=== PATIENT | female | born 2000 | race Caucasian/White ===

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

== ENCOUNTER → 2020-03-23 | Outpatient (CLI) | payer OTHER, SELFPAY ==
[2020-03-23 15:06] LABS: Potassium 4.2 mmol/L (3.5-5.1)
== END | disposition home or self-care (01) ==
PROVIDERS: Referring Provider Dermatology; Visit Provider Dermatology
DX: Z79.899 Other long term (current) drug therapy (principal); L70.0 Acne vulgaris
CPT/HCPCS: 36415; 84132

== ENCOUNTER 2021-01-17 08:26 | Outpatient (RCR) | payer OTHER, SELFPAY | END 2021-03-12 23:59 | LOC: IMMUN 08:26 | PROVIDERS: PCP Family Medicine; Referring Provider Family Medicine; Visit Provider Family Medicine | DX: Z23 Encounter for immunization (principal) | CPT/HCPCS: 0001A; 0002A; 91300 ==

== ENCOUNTER → 2021-03-21 12:14 | Outpatient (CLI) | payer OTHER, SELFPAY ==
[2021-03-21 15:06] LABS: Potassium 5.2 mmol/L (3.5-5.1)
== END ==
PROVIDERS: PCP Family Medicine; Referring Provider Dermatology; Visit Provider Dermatology
DX: L70.0 Acne vulgaris (principal); Z79.899 Other long term (current) drug therapy
CPT/HCPCS: 36415; 84132

== ENCOUNTER → 2021-03-25 13:12 | Outpatient (CLI) | payer OTHER, SELFPAY ==
[2021-03-25 15:16] LABS: Potassium 4.3 mmol/L (3.5-5.1)
== END ==
PROVIDERS: PCP Family Medicine; Referring Provider Dermatology; Visit Provider Dermatology
DX: Z79.899 Other long term (current) drug therapy (principal)
CPT/HCPCS: 36415; 84132

== ENCOUNTER → 2021-10-03 15:18 | Outpatient (CLI) | payer OTHER, SELFPAY | PROVIDERS: PCP Family Medicine; Visit Provider Physician Assistant Medical | DX: Z11.52 Encounter for screening for COVID-19 (principal) | CPT/HCPCS: 87635; U0003; U0005 ==

== ENCOUNTER → 2022-04-09 | Outpatient (CLI) | payer OTHER, SELFPAY ==
[2022-04-09 15:21] LABS: Potassium 4.2 mmol/L (3.5-5.1)
== END | disposition home or self-care (01) ==
PROVIDERS: PCP Family Medicine; Referring Provider Dermatology; Visit Provider Dermatology
DX: L70.0 Acne vulgaris (principal); Z79.899 Other long term (current) drug therapy
CPT/HCPCS: 36415; 84132

== ENCOUNTER → 2023-03-18 | Outpatient (CLI) | payer OTHER, SELFPAY ==
[2023-03-18 18:17] LABS: Absolute Lymphocyte Count 1.56 X10^3/uL (0.83-4.51); Absolute Neutrophil Count 4.7 X10^3/uL (2.0-7.7); Basophil# 0.04 X10^3/uL; Basophil% 0.6 % (0-1); Eosinophil# 0.08 X10^3/uL; Eosinophils% 1.2 % (0-5); Hematocrit 41.5 % (37-47); Hemoglobin 13.8 g/dL (12.0-15.0); Lymphocyte # 1.56 X10^3/ul (0.83-4.51); Lymphocyte % 22.9 % (19-41); Mean Corp Hgb Conc 33.3 g/dL (32-36); Mean Corpuscular Hgb 28.8 pg (27.0-32.0); Mean Corpuscular Volume 86.5 fL (81-99); Mean Platelet Vol. 10.2 fl (6.2-12.0); Monocyte# 0.44 X10^3/uL; Monocyte% 6.5 % (0-10); NRBC Flagged by Analyzer 0 % (0-5); Neutrophil # 4.69 X10^3/uL (2.7-7.7); Neutrophil % 68.7 % (47-70); Platelet Count 346 K/mm3 (150-450); RBC Distribution Width CV 11.6 % (11.6-14.6); RBC Distribution Width SD 37.1 fl (35.1-43.9); White Blood Count 6.8 K/mm3 (4.4-11.0)
[2023-03-18 19:03] LABS: T4 Free Direct 0.99 ng/dL (0.76-1.46); Thyroid Stim Hormone (TSH) 3.29 uIU/mL (0.358-3.74)
[2023-03-23 17:21] LABS: HPV Reflexed? NOT INDICATED
== END | disposition home or self-care (01) ==
PROVIDERS: PCP Family Medicine; Referring Provider Registered Nurse; Visit Provider Registered Nurse
DX: Z12.4 Encounter for screening for malignant neoplasm of cervix (principal); N92.1 Excessive and frequent menstruation with irregular cycle
CPT/HCPCS: 36415; 84439; 84443; 85025; 88175; G0145

== ENCOUNTER → 2023-03-24 | Outpatient (CLI) | payer OTHER, SELFPAY ==
--- NOTE | 2023-03-24 13:48 | US_ITS ---
EXAM: US PELVIS TRANSVAGINAL CLINICAL INDICATION: irregular meses TECHNIQUE: Transvaginal pelvic ultrasound was performed with grayscale and color Doppler imaging. Transvaginal imaging was used for better evaluation of the endometrium and adnexa. COMPARISON: No relevant prior studies available. FINDINGS: UTERUS/CERVIX: Uterus measures 7.2 x 3.6 x 4.7 cm. The endometrium measures 4 mm. Anteverted. There is no uterine mass. RIGHT OVARY: The right ovary measures 2.3 x 1.2 x 1.9 cm. Blood flow is present in the right ovary. LEFT OVARY: The left ovary measures 4.5 x 3 x 4.3 cm. There is a large 3.7 x 2.5 x 3.7 cm anechoic structure in the left ovary compatible with a large cyst. Blood flow is present in the left ovary. FREE FLUID: None. BLADDER: Empty bladder which cannot be evaluated with this probe. US/Transvaginal Non- IMPRESSION: Large left ovarian cyst. No other abnormalities are identified. Electronically Signed: Martin Kirkland MD at 0:01 EDT ,
== END | disposition home or self-care (01) ==
LOC: US 13:48
PROVIDERS: PCP Family Medicine; Referring Provider Registered Nurse; Visit Provider Registered Nurse
DX: N92.1 Excessive and frequent menstruation with irregular cycle (principal)
CPT/HCPCS: 76830

== ENCOUNTER → 2023-04-08 | Outpatient (CLI) | payer OTHER, SELFPAY | END | disposition home or self-care (01) | LOC: MTLAB 12:42 | PROVIDERS: PCP Family Medicine; Referring Provider Dermatology; Visit Provider Dermatology | DX: L70.0 Acne vulgaris (principal); Z79.899 Other long term (current) drug therapy | CPT/HCPCS: 36415; 84132 ==

== ENCOUNTER → 2023-05-18 | Outpatient (CLI) | payer OTHER, SELFPAY ==
--- NOTE | 2023-05-18 10:08 | US_ITS ---
STUDY: ULTRASOUND OF THE FEMALE PELVIS - COMPLETE REASON FOR EXAM: Female, 22 years old. Left ovarian cyst LMP: May 13, 2023. TECHNIQUE: Transvaginal TECHNICAL QUALITY: Adequate. COMPARISON: Comparison is made with prior study dated March 24, 2023. FINDINGS: The uterus is retroverted and is in a midline position. The uterus measures 6.7 cm x 4.7 cm x 3.1 cm. There is a Nabothian cyst of the cervix. The endometrium measures 5 mm in thickness, and is hyperechoic. There is no demonstrated endometrial mass. There is no demonstrated myometrial mass. I.U.D. - The patient does not have an I.U.D. The right ovary is visualized. The right ovary measures 2.6 cm x 2.5 cm x 1.6 cm. There is no right ovarian cyst or ovarian mass. There is no visualized right adnexal mass or complex lesion. There is normal arterial and normal venous vascularity. The left ovary is visualized. The left ovary measures 2.5 cm x 1.5 cm x 1.5 cm. There is no left ovarian cyst or ovarian mass. There is no visualized left adnexal mass or complex lesion. There is normal arterial and normal venous vascularity. There is no fluid in the cul-de-sac. US/Transvaginal Non- IMPRESSION: Normal female pelvis. No left ovarian cyst is seen on today''s examination. Electronically Signed: Jan Sequeira MD at 15:47 EDT ,
== END | disposition home or self-care (01) ==
LOC: US 10:07
PROVIDERS: PCP Family Medicine; Referring Provider Registered Nurse; Visit Provider Registered Nurse
DX: N83.209 Unspecified ovarian cyst, unspecified side (principal)
CPT/HCPCS: 76830